=== PATIENT | female | born 1950 | race Caucasian/White ===

== ENCOUNTER 2018-11-03 14:37 | Emergency (ER) | payer MEDICARE ==
[~2018-11-03] VITALS: Ht 170.2 cm; Wt 97.1 kg
--- NOTE | 2018-11-03 16:32 | Diagnostic Imaging Report ---
Exam: Right hip radiographs and AP radiograph of the pelvis Comparison: None Findings: AP radiograph of the pelvis demonstrates no evidence of fracture or malalignment. Surgical clip projects over the pelvis. Mild degenerative changes are noted in bilateral hips, pubic symphysis, and lower lumbar spine. Dedicated right hip radiograph demonstrates no acute osseous abnormality. Impression: No acute radiographic abnormality. Mild bilateral hip osteoarthritis. Signed by: Dr. Amara Pascal MD on 11/03/2018 4:28 PM
--- NOTE | 2018-11-03 18:27 | NUR ---
pt unhappy from time of arrival in er. pt complaining not put directly into room and states she should have gone straight to the "other hospital." pt in no acute distress. appoligized for wait time, pt began stating the "government is a big conspiracy and that's what's wrong with the world." pt states she is "crazy" and "takes crazy medicine." pt is on klonazapem and doesn't remember other meds and states she has a hx of dementia. pt angry upon leaving stating she doesnt like tylenol #3 and wanted vicodin and is upset leaving without the "medicine she ordered.".......
== END 2018-11-03 17:00 | disposition home or self-care (01) ==
LOC: FSED 14:37
DX: L03.011 Cellulitis of right finger (principal); S70.01XA Contusion of right hip, initial encounter; W18.39XA Other fall on same level, initial encounter; Y92.008 Other place in unspecified non-institutional (private) residence as the place of occurrence of the external cause
CPT/HCPCS: 72170; 99283

== ENCOUNTER 2020-08-20 17:38 | Observation (INO) | payer MEDICARE ==
[~2020-08-20] VITALS: Ht 170.2 cm; Wt 95.3 kg
[2020-08-20] MEDS ORDERED: SODIUM CHLORIDE 0.9% 1000ML 1,000 ML IV STA (17:42)
[2020-08-20 18:12] LABS: BASOPHILS # (AUTO) 0.1 (0.0-0.1); BASOPHILS % 0.7 % (0.0-1.0); EOSINOPHILS # (AUTO) 0.2 (0.0-0.4); EOSINOPHILS % 2.5 % (0.0-6.0); HEMATOCRIT 41.3 % (34.2-44.1); HEMOGLOBIN 13.6 g/dL (12.0-16.0); LYMPHOCYTES # (AUTO) 1.9 (1.0-3.2); LYMPHOCYTES % 28.1 % (18.0-39.1); MEAN CORPUSCULAR HEMOGLOBIN 27.7 pg (28-32); MEAN CORPUSCULAR HGB CONC 32.9 g/dL (31-35); MEAN CORPUSCULAR VOLUME 84.1 fL (81-99); MONOCYTES # (AUTO) 0.4 (0.2-0.8); MONOCYTES % 6.4 % (4.4-11.3); NEUTROPHILS # (AUTO) 4.2 (2.1-6.9); NEUTROPHILS % 61.6 % (38.7-80.0); PLATELET COUNT 205 x10e3/uL (140-360); RED BLOOD COUNT 4.91 x10e6/uL (3.6-5.1); RED CELL DISTRIBUTION WIDTH 12.8 % (11.7-14.4)
[2020-08-20 18:33] LABS: ALANINE AMINOTRANSFERASE 18 IU/L (0-55); ALBUMIN 3.6 g/dL (3.5-5.0); ALBUMIN/GLOBULIN RATIO 1.4 (0.8-2.0); ALKALINE PHOSPHATASE 49 IU/L (40-150); ANION GAP 12.9 mmol/L (8-16); BLOOD UREA NITROGEN 20 mg/dL (7-26); BUN/CREATININE RATIO 19 (6-25); CALCIUM 8.5 mg/dL (8.4-10.2); CARBON DIOXIDE 25 mmol/L (22-29); CHLORIDE 105 mmol/L (98-107); CREATINE KINASE 40 IU/L (29-168); CREATININE, SERUM 1.05 mg/dL (0.57-1.11); EST GLOMERULAR FILTRATION RATE 52 ML/MIN (60-); GLUCOSE 182 mg/dL (74-118); POTASSIUM 3.9 mmol/L (3.5-5.1); SODIUM 139 mmol/L (136-145)
[2020-08-20] MEDS ORDERED: ASPIRIN 81 MG CHEW TAB PO ONE (19:45)
[2020-08-20] MEDS ORDERED: ONDANSETRON HCL INJ 2MG/ML 2ML 2 MG/ML VIAL IV PRN (19:45)
[2020-08-20] MEDS ORDERED: SODIUM CHLORIDE 0.9% 100 ML ONE (20:16)
[2020-08-20] MEDS ORDERED: IOPAMIDOL 370 MG/ML 200 ML INFUS..BTL INJ ONE (20:16)
[2020-08-20 21:06] VITALS: BP 129/69
[2020-08-20] MEDS: SODIUM CHLORIDE 0.9% 1000ML 1,000 ML IV SCH (22:11)
[2020-08-20] MEDS: MORPHINE SULFATE INJ 4 MG/ML INJ 1ML IV PRN (22:39)
[2020-08-20] MEDS ORDERED: METFORMIN HCL500 MG PO (23:48)
[2020-08-20 23:58] VITALS: BP 129/69
[2020-08-21] VITALS (7 sets, daily range): BP systolic 123–138; BP diastolic 65–72
[2020-08-21 02:31] LABS: CREATINE KINASE 61 IU/L (29-168)
[2020-08-21] MEDS: MORPHINE SULFATE INJ 4 MG/ML INJ 1ML IV PRN (02:45)
[2020-08-21 04:50] LABS: BASOPHILS # (AUTO) 0.1 (0.0-0.1); BASOPHILS % 0.7 % (0.0-1.0); EOSINOPHILS # (AUTO) 0.2 (0.0-0.4); EOSINOPHILS % 2.7 % (0.0-6.0); HEMATOCRIT 42.5 % (34.2-44.1); HEMOGLOBIN 14.3 g/dL (12.0-16.0); LYMPHOCYTES # (AUTO) 3.2 (1.0-3.2); LYMPHOCYTES % 36.9 % (18.0-39.1); MEAN CORPUSCULAR HEMOGLOBIN 28.7 pg (28-32); MEAN CORPUSCULAR HGB CONC 33.6 g/dL (31-35); MEAN CORPUSCULAR VOLUME 85.2 fL (81-99); MONOCYTES # (AUTO) 0.6 (0.2-0.8); MONOCYTES % 6.4 % (4.4-11.3); NEUTROPHILS # (AUTO) 4.6 (2.1-6.9); NEUTROPHILS % 52.5 % (38.7-80.0); PLATELET COUNT 211 x10e3/uL (140-360); RED BLOOD COUNT 4.99 x10e6/uL (3.6-5.1)
[2020-08-21 05:09] LABS: ALANINE AMINOTRANSFERASE 19 IU/L (0-55); ALBUMIN 3.9 g/dL (3.5-5.0); ALBUMIN/GLOBULIN RATIO 1.4 (0.8-2.0); ALKALINE PHOSPHATASE 51 IU/L (40-150); ANION GAP 14.2 mmol/L (8-16); BLOOD UREA NITROGEN 15 mg/dL (7-26); BUN/CREATININE RATIO 16 (6-25); CALCIUM 8.7 mg/dL (8.4-10.2); CARBON DIOXIDE 21 mmol/L (22-29); CHLORIDE 108 mmol/L (98-107); CREATININE, SERUM 0.91 mg/dL (0.57-1.11); EST GLOMERULAR FILTRATION RATE > 60 ML/MIN (60-); GLUCOSE 124 mg/dL (74-118); POTASSIUM 4.2 mmol/L (3.5-5.1); SODIUM 139 mmol/L (136-145)
[2020-08-21] MEDS: SODIUM CHLORIDE 0.9% 1000ML 1,000 ML IV SCH ×2 (06:00→15:32)
[2020-08-21] MEDS ORDERED: LORAZEPAM INJ 2 MG/ML VIAL IV NR (10:45)
[2020-08-21 11:45] LABS: CREATINE KINASE MB 1.1 ng/mL (0-5.0)
[2020-08-21] MEDS: KETOROLAC TROMETHAMINE 30 MG/ML VIAL IM PRN (14:19)
[2020-08-21] MEDS ORDERED: DIPHENHYDRAMINE HCL 25 MG CAP PO ONE (22:00)
[2020-08-22] VITALS: BP 140/70
[2020-08-22] MEDS: SODIUM CHLORIDE 0.9% 1000ML 1,000 ML IV SCH (01:21)
[2020-08-22 03:30] VITALS: BP 136/79
[2020-08-22 05:56] LABS: BASOPHILS % 0.5 % (0.0-1.0); EOSINOPHILS # (AUTO) 0.2 (0.0-0.4); EOSINOPHILS % 3.8 % (0.0-6.0); HEMATOCRIT 38.5 % (34.2-44.1); HEMOGLOBIN 12.8 g/dL (12.0-16.0); LYMPHOCYTES # (AUTO) 2.3 (1.0-3.2); LYMPHOCYTES % 40.2 % (18.0-39.1); MEAN CORPUSCULAR HEMOGLOBIN 28.6 pg (28-32); MEAN CORPUSCULAR HGB CONC 33.2 g/dL (31-35); MEAN CORPUSCULAR VOLUME 86.1 fL (81-99); MONOCYTES # (AUTO) 0.4 (0.2-0.8); MONOCYTES % 7.1 % (4.4-11.3); NEUTROPHILS # (AUTO) 2.8 (2.1-6.9); NEUTROPHILS % 48.1 % (38.7-80.0); PLATELET COUNT 175 x10e3/uL (140-360); RED BLOOD COUNT 4.47 x10e6/uL (3.6-5.1)
[2020-08-22] MEDS: KETOROLAC TROMETHAMINE 30 MG/ML VIAL IM PRN (05:56)
[2020-08-22 06:14] LABS: ANION GAP 10.9 mmol/L (8-16); BLOOD UREA NITROGEN 15 mg/dL (7-26); BUN/CREATININE RATIO 17 (6-25); CALCIUM 8.1 mg/dL (8.4-10.2); CARBON DIOXIDE 20 mmol/L (22-29); CHLORIDE 113 mmol/L (98-107); CREATININE, SERUM 0.89 mg/dL (0.57-1.11); EST GLOMERULAR FILTRATION RATE > 60 ML/MIN (60-); GLUCOSE 152 mg/dL (74-118); POTASSIUM 3.9 mmol/L (3.5-5.1); SODIUM 140 mmol/L (136-145)
[2020-08-22 08:06] VITALS: BP 162/79
[2020-08-22 08:56] VITALS: BP 162/79
[2020-08-22] MEDS ORDERED: ASPIRIN 81 MG CHEW TAB PO ONE (10:00)
[2020-08-22] MEDS ORDERED: OYST-CAL-D 500MG TABLET PO ONE (10:00)
[2020-08-22] MEDS ORDERED: KETOROLAC TROMETHAMINE 30 MG/ML VIAL IV ONE (10:00)
[2020-08-22 10:42] LABS: THYROID STIMULATING HORMONE 2.499 uIU/mL (0.350-4.940)
[2020-08-22 11:29] LABS: CHOL/HDL RATIO 6.4 (3.0-3.6)
[2020-08-22 12:08] VITALS: BP 136/92
[2020-08-22] MEDS ORDERED: ONDANSETRON HCL 4 MG ORAL DISINTEGRATING TAB PO PRN (13:00)
[2020-08-22] MEDS ORDERED: ATORVASTATIN CA20 MG PO (15:51)
[2020-08-22] MEDS ORDERED: ASPIRIN81 MG PO (15:51)
[2020-08-22 16:00] VITALS: BP 141/74
[2020-08-22] MEDS ORDERED: ATORVASTATIN 20 MG TAB PO SCH (21:00)
[2020-08-23] MEDS ORDERED: ASPIRIN 81 MG CHEW TAB PO SCH (09:00)
== END 2020-08-22 17:10 | disposition home or self-care (01) ==
LOC: ER 18:18 → INTOOBSV 19:44 → ERHOLD 19:44 → MED/SURG 21:09
DX: E86.0 Dehydration (principal); F32.9 Major depressive disorder, single episode, unspecified; G43.909 Migraine, unspecified, not intractable, without status migrainosus; I95.9 Hypotension, unspecified; R73.9 Hyperglycemia, unspecified; Z11.59 Encounter for screening for other viral diseases
CPT/HCPCS: 36415 ×3; 70450; 70498; 70551; 71045; 72125; 72141; 80048; 80053 ×2; 80061; 82550 ×2; 82553 ×2; 82607; 82746; 82948 ×2; 83036; 83880; 84443; 84484 ×2; 85025 ×3; 85651; 86039; 86592; 93005; 93306; 93880; 95812; 99284; G0378 ×3; J1885 ×2; J2060; J2270 ×2; J7030 ×2; J7050; Q9967; U0002

== ENCOUNTER → 2022-11-17 | Outpatient (CLI) | payer MEDICARE ==
[~2022-11-17] MED LIST: ASPIRIN81 MG PO; ATORVASTATIN CA20 MG PO; METFORMIN HCL500 MG PO
== END ==
LOC: RAD 09:36
PROVIDERS: ATTEND Family Medicine
DX: M25.531 Pain in right wrist (principal); M54.50 Low back pain, unspecified
CPT/HCPCS: 72110